=== PATIENT | female | born 1995 | race Caucasian/White ===

== ENCOUNTER 2018-01-31 09:58 | Emergency (ER) | payer BC ==
[2018-01-31 10:10] VITALS: RESP 24; TEMP 97.3
[2018-01-31] MEDS ORDERED: NS 1,000 ML IV ONE (10:34)
[2018-01-31] MEDS ORDERED: ONDANSETRON 4 MG/2 ML VIAL IVP ONE (10:34)
[2018-01-31 10:39] LABS: PLATELET COUNT 288 10^3/uL (150-400)
[2018-01-31] MEDS ORDERED: PANTOPRAZOLE SODIUM 40 MG VIAL IVP ONE (11:51)
[2018-01-31] MEDS ORDERED: fentaNYL 100 MCG/2 ML INJ IVP ONE (11:51)
--- NOTE | 2018-01-31 14:47 | EDPHY ---
H & P Smoking Status: Current some day smoker Time Seen by Provider: 01/31/18 11:10 HPI/ROS: CHIEF COMPLAINT: Abdominal pain, vomiting HISTORY OF PRESENT ILLNESS: 22-year-old female presents to the emergency department with multiple episodes of vomiting and epigastric abdominal pain. She has a known history of GERD. She admits to drinking a large amount of alcohol over the weekend. No diarrhea. No chest pain or difficulty breathing. No reported trauma. Patient also reports possibility of recurring bacterial vaginosis. She states that she typically gets bacteria vaginosis "once a month ". She finished antibiotics over a week ago. She denies any concern for sexually transmitted infection. REVIEW OF SYSTEMS: Constitutional: No fever, no chills. Eyes: No double or blurry vision. ENT: No sore throat. Respiratory: No cough, no shortness of breath. Cardiac: No chest pain. Gastrointestinal: As above. No diarrhea. Genitourinary: No dysuria. Musculoskeletal: No neck or back pain. Skin: No rashes. Neurological: No headache. (Mikki Fischer) Past Medical/Surgical History: Negative (Mikki Fischer) Social History: Single (Mikki Fischer) Physical Exam: General Appearance: Alert, no distress. Afebrile. Eyes: Pupils equal and round. Extraocular motions are all intact. ENT: Mouth: Mucous membranes moist. Respiratory: No wheezing, rhonchi, or rales, lungs are clear to auscultation. Cardiovascular: Regular rate and rhythm. Gastrointestinal: Abdomen is soft. She does have some mild tenderness with palpation in the epigastric area. No masses, rebound or guarding noted. Specifically Bravo sign is negative. No CVA tenderness bilaterally. Genitourinary: Pelvic exam performed with nurse at bedside. Speculum examination reveals cervical os which is closed. No evidence of blood in the vaginal canal. No bimanual examination performed. Neurological: Alert and oriented x 3, cranial nerves II through XII grossly intact Skin: Warm and dry, no rashes. Musculoskeletal: Nontender to palpate along the cervical, thoracic or lumbar spine. Neck is supple. Extremities: Full range of motion and no peripheral edema. Psychiatric: Patient is oriented X 3, there is no agitation. (Mikki Fischer) Constitutional: Initial Vital Signs Temperature (C) 36.3 C 01/31/18 10:07 Heart Rate 89 01/31/18 10:07 Respiratory Rate 24 H 01/31/18 10:07 Blood Pressure 108/77 01/31/18 10:07 O2 Sat (%) 96 01/31/18 10:07 O2 Delivery Mode Room Air Allergies/Adverse Reactions: pineapple Allergy (Severe, Verified 01/31/18 10:06) throat closes up Home Medications: Medication Instructions Recorded Metronidazole 500 mg PO BID #14 tablet 01/31/18 Medical Decision Making ED Course/Re-evaluation: Patient had IV established and was given IV normal saline, IV Zofran, IV fentanyl ultimately IV Ativan. Patient was feeling much better. She is tolerating p.o. Fluids. I do not think imaging studies are indicated. Her abdomen is benign. She was tolerating p.o. Fluids. 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 Patient has a history of recurring bacterial vaginosis. She will be treated with metronidazole. She was told to not mix this with alcohol. (Mikki Fischer ) I did not see this patient while she was in the emergency department. However her care was discussed with the PA while the patient was in the department. I agree with treatment plan and management (Obed Phillips) Differential Diagnosis: Including but not limited to GERD, peptic ulcer disease, esophagitis, dehydration, electrolyte abnormality, pancreatitis, cholecystitis, cholelithiasis (Mikki Fischer) - Data Points Laboratory Results: Laboratory Results 01/31/18 09:48 01/31/18 09:48 Medications Given: Discontinued Medications Fentanyl (Sublimaze) 50 mcg IVP EDNOW ONE Stop: 01/31/18 11:52 Last Admin: 01/31/18 11:56 Dose: 50 mcg Sodium Chloride (Ns) 1,000 mls @ 0 mls/hr IV ONCE ONE PRN Reason: Wide Open Stop: 01/31/18 10:35 Last Admin: 01/31/18 10:38 Dose: 1,000 mls Ondansetron HCl (Zofran) 4 mg IVP EDNOW ONE Stop: 01/31/18 10:35 Last Admin: 01/31/18 10:38 Dose: 4 mg Pantoprazole Sodium (Protonix) 40 mg IVP EDNOW ONE Stop: 01/31/18 11:52 Last Admin: 01/31/18 11:56 Dose: 40 mg Departure - Departure Disposition: Home, Routine, Self-Care Clinical Impression: Bacterial vaginosis Abdominal pain Qualifiers: Abdominal location: epigastric Qualified Code(s): R10.13 - Epigastric pain Condition: Good Instructions: Bacterial Vaginosis (ED) Additional Instructions: Clear liquids and slowly advance diet as tolerated. Call [phone] for the results of your bacteria vaginosis tests this evening. Referrals: Priya Cantu MD [Medical Doctor] - As per Instructions (OBGYN on-call) Prescriptions: Metronidazole 500 mg PO BID #14 tablet
[2018-01-31 15:01] VITALS: BP 120/80; PULSE 73; O2SAT 99
== END 2018-01-31 15:01 | disposition home or self-care (01) ==
DX: R10.13 Epigastric pain (principal); N76.0 Acute vaginitis; B96.89 Other specified bacterial agents as the cause of diseases classified elsewhere; F17.200 Nicotine dependence, unspecified, uncomplicated
CPT/HCPCS: 96374; J2405; J3010